=== PATIENT | female | born 1970 | race Caucasian/White ===

== ENCOUNTER 2018-06-07 16:49 | Observation (INO) | payer OTHER ==
[~2018-06-07] VITALS: Ht 160 cm; Wt 70.8 kg
--- NOTE | 2018-06-07 17:28 | EKG ---
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
--- NOTE | 2018-06-07 17:30 | RAD ---
AP chest. HISTORY: Chest pain Portable AP view was taken of the chest. There is mild apical scarring and linear density. There are no acute infiltrates. Heart is within normal limits in size. There is no pleural effusion. IMPRESSION: 1. No acute infiltrates. Electronically signed by: Emerson Dai MD (06/07/2018 5:26 PM) [facility]
[2018-06-07 17:47] LABS: BASO % 1 % (0-3); EOS # 0.3 x10^3/uL (0.0-0.7); EOS % 5 % (0-3); HEMATOCRIT 35.9 % (36.0-47.0); HEMOGLOBIN 12.2 g/dL (12.0-15.5); LYMPH # 2.1 x10^3/uL (1.0-4.8); LYMPH % 39 % (24-48); MEAN CORPUSCULAR HEMOGLOBIN 30 pg (25-35); MEAN CORPUSCULAR HGB CONC 34 g/dL (31-37); MEAN CORPUSCULAR VOLUME 89 fL (79-100); MONO # 0.4 x10^3/uL (0.0-1.1); MONO % 7 % (0-9); NEUT # 2.6 x10^3uL (1.8-7.7); NEUT % 48 % (31-73); PLATELET COUNT 212 x10^3/uL (140-400); RED BLOOD COUNT 4.02 x10^6/uL (3.50-5.40); RED CELL DISTRIBUTION WIDTH 13.8 % (11.5-14.5); WHITE BLOOD COUNT 5.5 x10^3/uL (4.0-11.0)
[2018-06-07 18:08] LABS: ALBUMIN 3.1 g/dL (3.4-5.0); ALBUMIN/GLOBULIN RATIO 1.3 (1.0-1.7); CALCIUM 9.1 mg/dL (8.5-10.1); CREATININE 0.7 mg/dL (0.6-1.0); GFR 90.1; MAGNESIUM 1.8 mg/dL (1.8-2.4); POTASSIUM 3.4 mmol/L (3.5-5.1); TOTAL BILIRUBIN 0.1 mg/dL (0.2-1.0); TOTAL PROTEIN 5.5 g/dL (6.4-8.2)
[2018-06-07] MEDS ORDERED: MORPHINE SULFATE 4 MG/ML DISP.SYRIN. IV ONE (18:30)
--- NOTE | 2018-06-07 18:38 | PHYS DOC ---
Adult General Chief Complaint Chief Complaint: DYSPNEA/RESPIRATOY DISTRESS [facility] HPI Patient is a 47 year old female who presents with appearing of chest pain and shortness of breath. Patient complaining of intermittent episodes of left lower chest pain as a stabbing pain for the last 1 week that usually happen when she lays down. Patient complaining of shortness of breath with the pain and rated her pain 8/10. Patient complaining of nonproductive cough and generalized weakness without nausea and vomiting, palpitation, fever and chills, history of chest pain. Patient was seen by her primary care physician 5 days ago and today and gained about 15 pounds and recommended to come to emergency room for evaluation of chest pain and possible CHF. Review of Systems Review of Systems Constitutional: Denies fever or chills [] Eyes: Denies change in visual acuity, redness, or eye pain [] HENT: Denies nasal congestion or sore throat [] Respiratory: Reports cough and shortness of Cardiovascular: No additional information not addressed in HPI [] GI: Denies abdominal pain, nausea, vomiting, bloody stools or diarrhea [] : Denies dysuria or hematuria [] Musculoskeletal: Denies back pain or joint pain [] Integument: Denies rash or skin lesions [] Neurologic: Denies headache, focal weakness or sensory changes [] Endocrine: Denies polyuria or polydipsia [] All other systems were reviewed and found to be within normal limits, except as documented in this note. Physical Exam Physical Exam Constitutional: Well developed, well nourished, mild distress, non-toxic appearance. [] HENT: Normocephalic, atraumatic Eyes: PERRLA, EOMI, conjunctiva normal, no discharge. [] Neck: Normal range of motion, no tenderness, supple, no stridor. [] Cardiovascular:Heart rate regular rhythm, no murmur [] Lungs & Thorax: Bilateral mild rhonchi and rales Abdomen: Bowel sounds normal, soft, no tenderness, no masses, no pulsatile masses. [] Skin: Warm, dry, no erythema, no rash. [] Back: No tenderness, no CVA tenderness. [] Extremities: No tenderness, no cyanosis, no clubbing, ROM intact, no edema. [] Neurologic: Alert and oriented X 3, normal motor function, normal sensory function, no focal deficits noted. [] Psychologic: Affect normal, judgement normal, mood normal. [] Current Patient Data Lab Results Laboratory Tests Test 06/07/18 17:20 White Blood Count 5.5 x10^3/uL (4.0-11.0) Red Blood Count 4.02 x10^6/uL (3.50-5.40) Hemoglobin 12.2 g/dL (12.0-15.5) Hematocrit 35.9 % (36.0-47.0) L Mean Corpuscular Volume 89 fL (79-100) Mean Corpuscular Hemoglobin 30 pg (25-35) Mean Corpuscular Hemoglobin Concent 34 g/dL (31-37) Red Cell Distribution Width 13.8 % (11.5-14.5) Platelet Count 212 x10^3/uL (140-400) Neutrophils (%) (Auto) 48 % (31-73) Lymphocytes (%) (Auto) 39 % (24-48) Monocytes (%) (Auto) 7 % (0-9) Eosinophils (%) (Auto) 5 % (0-3) H Basophils (%) (Auto) 1 % (0-3) Neutrophils # (Auto) 2.6 x10^3uL (1.8-7.7) Lymphocytes # (Auto) 2.1 x10^3/uL (1.0-4.8) Monocytes # (Auto) 0.4 x10^3/uL (0.0-1.1) Eosinophils # (Auto) 0.3 x10^3/uL (0.0-0.7) Basophils # (Auto) 0.0 x10^3/uL (0.0-0.2) Prothrombin Time 9.5 SEC (9.4-11.4) Prothrombin Time INR 1.0 (0.9-1.1) PTT 25 SEC (23-33) D-Dimer (Debra) 0.37 mg/L (0.00-0.50) Sodium Level 143 mmol/L (136-145) Potassium Level 3.4 mmol/L (3.5-5.1) L Chloride Level 108 mmol/L (98-107) H Carbon Dioxide Level 27 mmol/L (21-32) Anion Gap 8 (6-14) Blood Urea Nitrogen 11 mg/dL (7-20) Creatinine 0.7 mg/dL (0.6-1.0) Estimated GFR (Cockcroft-Gault) 90.1 BUN/Creatinine Ratio 16 (6-20) Glucose Level 88 mg/dL (70-99) Calcium Level 9.1 mg/dL (8.5-10.1) Magnesium Level 1.8 mg/dL (1.8-2.4) Total Bilirubin 0.1 mg/dL (0.2-1.0) L Aspartate Amino Transferase (AST) 15 U/L (15-37) Alanine Aminotransferase (ALT) 21 U/L (14-59) Alkaline Phosphatase 90 U/L (46-116) Creatine Kinase 89 U/L (26-192) Troponin I Quantitative < 0.017 ng/mL (0-0.055) YT-Krc-D-Type Natriuretic Peptide 82 pg/mL (0-124) Total Protein 5.5 g/dL (6.4-8.2) L Albumin 3.1 g/dL (3.4-5.0) L Albumin/Globulin Ratio 1.3 (1.0-1.7) EKG EKG EKG interpreted by me. EKG at 1707 showed normal sinus rhythm at rate of 74, low voltage QRS, no acute ST and T-wave abnormalities Radiology/Procedures Radiology/Procedures [address] [address] IMAGING REPORT Signed PATIENT: NIKI LOPEZ ACCOUNT: [id number] : 1970 LOCATION: ER AGE: 47 SEX: F EXAM STATUS: REG ER ORD. PHYSICIAN: DNO COON MD REASON: chest pain PROCEDURE: PORTABLE CHEST 1V AP chest. HISTORY: Chest pain Portable AP view was taken of the chest. There is mild apical scarring and linear density. There are no acute infiltrates. Heart is within normal limits in size. There is no pleural effusion. IMPRESSION: 1. No acute infiltrates. Electronically signed by: Emerson Dai MD (06/07/2018 5:26 PM) [facility] DICTATED AND SIGNED BY: EMERSON DAI MD DATE: 06/07/18 2674 CC: DON COON MD; RAFAEL POWERS ~ Course & Med Decision Making Course & Med Decision Making Pertinent Labs and Imaging studies reviewed. (See chart for details) Evaluation of patient in ER showed 47-year-old female patient with complaining of intermittent episodes of chest pain in complaining from 8. Patient had by basilar arteries. Chest x-ray and labs was unremarkable regarding CHF and PE and acute heart attack. Because of chest pain for 1 week and gaining. Plan to admit patient with diagnosis of acute chest pain. Dr. Mcclure accepted admission at 1807. Dragon Disclaimer Dragon Disclaimer This electronic medical record was generated, in whole or in part, using a voice recognition dictation system. Departure Departure: Impression: Primary Impression: Acute chest pain Additional Impressions: Dyspnea Tobacco abuse Disposition: 09 ADMITTED INPATIENT (at 1835) Admitting Physician: Other (Dr. Mcclure accepted admission at 1807) Condition: IMPROVED Referrals: RAFAEL POWERS (PCP) Problem Qualifiers DON COON MD Jun 07, 2018 18:38
[2018-06-07 19:53] VITALS: BP 143/90
[2018-06-07] MEDS ORDERED: CHOL10003 PO (20:33)
[2018-06-07] MEDS ORDERED: ESTR1TAB88 PO (20:33)
[2018-06-07 22:18] VITALS: BP 117/78
[2018-06-08 00:40] VITALS: BP 116/80
[2018-06-08] MEDS ORDERED: MORPHINE SULFATE 2 MG/ML DISP.SYRIN. IV PRN (02:45)
[2018-06-08 05:35] VITALS: BP 112/74
[2018-06-08 06:05] LABS: BASO # 0.1 x10^3/uL (0.0-0.2); BASO % 1 % (0-3); EOS # 0.2 x10^3/uL (0.0-0.7); EOS % 5 % (0-3); HEMATOCRIT 36.2 % (36.0-47.0); HEMOGLOBIN 12.4 g/dL (12.0-15.5); LYMPH # 2.1 x10^3/uL (1.0-4.8); LYMPH % 47 % (24-48); MEAN CORPUSCULAR HEMOGLOBIN 30 pg (25-35); MEAN CORPUSCULAR HGB CONC 34 g/dL (31-37); MEAN CORPUSCULAR VOLUME 89 fL (79-100); MONO # 0.3 x10^3/uL (0.0-1.1); MONO % 7 % (0-9); NEUT # 1.8 x10^3uL (1.8-7.7); NEUT % 40 % (31-73); PLATELET COUNT 211 x10^3/uL (140-400); RED BLOOD COUNT 4.06 x10^6/uL (3.50-5.40); RED CELL DISTRIBUTION WIDTH 13.3 % (11.5-14.5); WHITE BLOOD COUNT 4.4 x10^3/uL (4.0-11.0)
[2018-06-08 06:12] LABS: CALCIUM 8.4 mg/dL (8.5-10.1); CREATININE 0.7 mg/dL (0.6-1.0); GFR 90.1; POTASSIUM 3.7 mmol/L (3.5-5.1)
[2018-06-08] MEDS ORDERED: CHOLECALCIFEROL (VITAMIN D3) 1,000 UNIT TABLET PO SCH (09:00)
[2018-06-08] MEDS ORDERED: DUAVEE PO SCH (09:00)
--- NOTE | 2018-06-08 09:40 | PDOC2 ---
CONSULT Date of Admission DATE: 06/08/18 TIME: 09:35 Reason for Consult: cp Problem List Problems Medical Problems: (1) Acute chest pain Status: Acute (2) Dyspnea Status: Acute (3) Tobacco abuse Status: Acute History of Present Illness Ms Godinez is a 47 year old female who presented with complaints of chest pain and orthopnea. She describes sharp pain left lateral chest worse with deep inspiration. She complains of shortness of breath and "dry, hacking" cough when she tries to lay down at night. She says she coughs so hard she feels like she would asphyxiate. Her , who is at bedside, states her coughing is frightening. She says she sits up and after a few minutes is able to catch her breath and stop coughing. She reports the cough started in early May just after the [place]. She reports fluid retention and a gain of >20 lbs over a short period of time. She denies, however, any exertional symptoms. She reports induced hypertension, leaking valve and post and episode of heart failure which she says this feels like. She reports occasional palpitations, denies lightheadedness or syncope. She denies any functional limitations. When asked, she reiterates that her symptoms only occur at night. Cardiovascular: CHF, Other ( induced hypertension) Pulmonary: Pneumonia GI: GERD Past Surgical History: , Hernia Repair, Other (benign breast cyst removal) Family History TIA, cancer (brain, thyroid and breast), CHF Social History 1ppd smoker, no significant ETOH, no illicit drugs. Current Medications Current Medications Morphine Sulfate (Morphine 4mg Syringe) 4 mg 1X ONCE IV Last administered on at 19:01; Start 06/07/18 at 18:30; Stop 06/07/18 at 21:06; Status DC Influenza Virus Vaccine (Afluria Trivalent 9210-0729 Syringe) 0.5 ml ONCE ONCE VAX IM ; Start 06/08/18 at 09:00; Stop 06/08/18 at 09:01; Status DC Vitamin D (Vitamin D3) 2,000 unit DAILY PO ; Start 06/08/18 at 09:00 Non-Formulary Medication (Estrogens,Conj/ Bazedoxifene (Duavee 0.45-20 Mg Tablet )) 1 tab DAILY PO ; Start 06/08/18 at 09:00 Morphine Sulfate (Morphine 2mg Syringe) 2 mg PRN Q2HR PRN IV PAIN Last administered on 06/08/18at 02:55; Start 06/08/18 at 02:45 Active Scripts Active Reported Duavee 0.45-20 Mg Tablet (Estrogens,Conj/Bazedoxifene) 1 Each Tablet 1 Tab PO DAILY LAST DOSE GIVEN: DATE: TIME: NEXT DOSE DUE: DATE: TIME: Vitamin D3 (Cholecalciferol (Vitamin D3)) 1,000 Unit Tablet 2,000 Unit PO DAILY LAST DOSE GIVEN: DATE: TIME: NEXT DOSE DUE: DATE: TIME: Allergies: Coded Allergies: iodine (Verified Allergy, Intermediate, Shortness of Air, 06/07/18) Review of System as per HPI or negative General: Alert, Oriented X3, Cooperative, No acute distress HEENT: Atraumatic, EOMI, Mucous membr. moist/pink Lungs: Clear to auscultation Heart: Regular rate, Normal S1, Normal S2 Abdomen: Normal bowel sounds, Soft, No tenderness Extremities: No cyanosis, No edema, Normal pulses Neuro: Normal speech, Strength at 5/5 X4 ext Psych/Mental Status: Mental status NL, Mood NL VITALS Vital Signs Date Time Temp Pulse Resp B/P (MAP) Pulse Ox O2 Delivery O2 Flow Rate FiO2 06/08/18 08:00 Room Air 06/08/18 05:35 98.3 76 18 112/74 (87) 95 Labs Laboratory Tests Test 06/07/18 17:20 06/07/18 22:02 06/08/18 00:40 06/08/18 05:55 White Blood Count 5.5 x10^3/uL (4.0-11.0) 4.4 x10^3/uL (4.0-11.0) Red Blood Count 4.02 x10^6/uL (3.50-5.40) 4.06 x10^6/uL (3.50-5.40) Hemoglobin 12.2 g/dL (12.0-15.5) 12.4 g/dL (12.0-15.5) Hematocrit 35.9 % (36.0-47.0) 36.2 % (36.0-47.0) Mean Corpuscular Volume 89 fL (79-100) 89 fL (79-100) Mean Corpuscular Hemoglobin 30 pg (25-35) 30 pg (25-35) Mean Corpuscular Hemoglobin Concent 34 g/dL (31-37) 34 g/dL (31-37) Red Cell Distribution Width 13.8 % (11.5-14.5) 13.3 % (11.5-14.5) Platelet Count 212 x10^3/uL (140-400) 211 x10^3/uL (140-400) Neutrophils (%) (Auto) 48 % (31-73) 40 % (31-73) Lymphocytes (%) (Auto) 39 % (24-48) 47 % (24-48) Monocytes (%) (Auto) 7 % (0-9) 7 % (0-9) Eosinophils (%) (Auto) 5 % (0-3) 5 % (0-3) Basophils (%) (Auto) 1 % (0-3) 1 % (0-3) Neutrophils # (Auto) 2.6 x10^3uL (1.8-7.7) 1.8 x10^3uL (1.8-7.7) Lymphocytes # (Auto) 2.1 x10^3/uL (1.0-4.8) 2.1 x10^3/uL (1.0-4.8) Monocytes # (Auto) 0.4 x10^3/uL (0.0-1.1) 0.3 x10^3/uL (0.0-1.1) Eosinophils # (Auto) 0.3 x10^3/uL (0.0-0.7) 0.2 x10^3/uL (0.0-0.7) Basophils # (Auto) 0.0 x10^3/uL (0.0-0.2) 0.1 x10^3/uL (0.0-0.2) Prothrombin Time 9.5 SEC (9.4-11.4) Prothromb Time International Ratio 1.0 (0.9-1.1) Activated Partial Thromboplast Time 25 SEC (23-33) D-Dimer (Debra) 0.37 mg/L (0.00-0.50) Sodium Level 143 mmol/L (136-145) 142 mmol/L (136-145) Potassium Level 3.4 mmol/L (3.5-5.1) 3.7 mmol/L (3.5-5.1) Chloride Level 108 mmol/L (98-107) 108 mmol/L (98-107) Carbon Dioxide Level 27 mmol/L (21-32) 30 mmol/L (21-32) Anion Gap 8 (6-14) 4 (6-14) Blood Urea Nitrogen 11 mg/dL (7-20) 9 mg/dL (7-20) Creatinine 0.7 mg/dL (0.6-1.0) 0.7 mg/dL (0.6-1.0) Estimated GFR (Cockcroft-Gault) 90.1 90.1 BUN/Creatinine Ratio 16 (6-20) Glucose Level 88 mg/dL (70-99) 82 mg/dL (70-99) Calcium Level 9.1 mg/dL (8.5-10.1) 8.4 mg/dL (8.5-10.1) Magnesium Level 1.8 mg/dL (1.8-2.4) Total Bilirubin 0.1 mg/dL (0.2-1.0) Aspartate Amino Transf (AST/SGOT) 15 U/L (15-37) Alanine Aminotransferase (ALT/SGPT) 21 U/L (14-59) Alkaline Phosphatase 90 U/L (46-116) Creatine Kinase 89 U/L (26-192) Troponin I Quantitative < 0.017 ng/mL (0-0.055) < 0.017 ng/mL (0-0.055) < 0.017 ng/mL (0-0.055) MN-Urs-N-Type Natriuretic Peptide 82 pg/mL (0-124) Total Protein 5.5 g/dL (6.4-8.2) Albumin 3.1 g/dL (3.4-5.0) Albumin/Globulin Ratio 1.3 (1.0-1.7) Images CXR no acute abn EKG sinus rhythm without acute ischemic changes Assessment/Plan 1. cp atypical - PR ruled out. will check echo for LV function and valvular disease as she reports a "valve problem" in the past. 2. orthopnea/persistent nocturnal cough - no evidence of heart failure clinically, normal CXR, normal BNP, no edema. Unclear cause. await echo for LV and valvular function. add PPI, check CT chest to rule out any structural abn. check nocturnal oximetry. 3. mild hypokalemia - replaced and now WNJOHANNA [employer]IV[employer] Jun 08, 2018 09:40
[2018-06-08 12:08] VITALS: BP 134/83
[2018-06-08] MEDS ORDERED: PANTOPRAZOLE 40 MG TABLET. PO SCH (14:30)
[2018-06-08 15:50] VITALS: BP 117/75
[2018-06-08] MEDS ORDERED: ALBUTEROL SULFATE 2.5 MG/3 ML NEBU. NEB SCH (16:00)
[2018-06-08] MEDS ORDERED: ALBUTEROL SULFATE 2.5 MG/3 ML NEBU. ONE (16:00)
[2018-06-08] MEDS ORDERED: methylPREDNISolone SOD SUCC PF 125 MG/2 ML VIAL. IV SCH (17:00)
--- NOTE | 2018-06-08 17:44 | RAD ---
CT CHEST WO CONTRAST Indication: CHEST PAIN, ORTHOPNEA, COUGH, Technique: Noncontrast CT imaging was performed of the chest, multiplanar reconstruction images submitted. One or more of the following individualized dose reduction techniques were utilized for this examination: 1. Automated exposure control 2. Adjustment of the mA and/or kV according to patient size 3. Use of iterative reconstruction technique. Comparison: None Findings: There is no pneumothorax. There is mild to moderate emphysema with upper zone predominance. There is minimal patchy infiltrate or atelectasis posteriorly of the left lower lobe abutting the pleural surface, minimally very mild dependent likely atelectasis on the right. There is no significant pleural fluid or pericardial effusion. No significantly enlarged nodes are identified of the chest, some subcentimeter lymph nodes of the mediastinum. There is hypodense lesion of the right thyroid gland about 1.5 cm. Major airways are patent. There is likely fibrotic change of the left lung apex, somewhat more confluent density axial image 11 greatest dimension about 2.3 cm transverse by 0.8 cm AP by 0.5 cm cc. Thoracic aortic caliber is within normal limits, cannot accurately evaluate for dissection flap on this noncontrast exam. IMPRESSION: 1. There is emphysema with upper zone predominance. There is mild dependent atelectasis or infiltrate left lower lobe dependently, also probable more likely fibrotic change near the left lung apex although somewhat more confluent density present for which attention on follow-up in 3 months advised as per revised Fleischner guideline. 2. There is hypodense lesion right thyroid gland for which nonemergent ultrasound evaluation recommended. Electronically signed by: Tyler Cowart MD (06/08/2018 5:41 PM) [facility]
--- NOTE | 2018-06-08 17:49 | PDOC1 ---
History of Present Illness Reason for Visit: chest pain, dyspnea History of Present Illness Ms Lopez is a 47 year old female who presented to the emergency department with complaints of chest pain and orthopnea. She describes sharp pain at the left lateral chest worse with deep inspiration. She complains of shortness of breath and nonproductive "dry, hacking" cough when she tries to lay down at night. She says she coughs so hard she feels like she would asphyxiate. Her , who is at bedside, states her coughing is frightening. She says she sits up and after a few minutes is able to catch her breath and stop coughing. Denies any dyspnea with upright posture. She reports fluid retention and a gain of >20 lbs over a short period of time. She feels the fluid accumulates in her legs, abdomen, and lungs denies any prior liver disease. No symptoms are reproducible with exertion. She reports induced hypertension, "leaky and enlarged valve and my heart" and post an episode of heart failure which she says this feels like. She reports occasional palpitations, denies lightheadedness or syncope. She denies any functional limitations. When asked , she reiterates that her symptoms only occur at night. She has had increased allergy symptoms concomitant with her nighttime cough and dyspnea and [place]" where there is a lot of agricultural activity with arial environmental pollutants. Her EKG was reportedly normal sinus rhythm 74 bpm with low voltage, chest x-ray read as unremarkable. Labs were significant for potassium of 3.4 which improved to 3.7 today with supplementation and eosinophilia. Echocardiogram are pending. I find her lying in bed with significant other at bedside. She describes multiple prior hospitalizations for similar symptoms "I spend all these night in the hospitals in the doctors can't figure out what's wrong with me." She is lying down for the exam with no apparent dyspnea. PATIENT: NIKI LOPEZ ACCOUNT: [id number] : 1970 LOCATION: [facility] AGE: 47 SEX: F EXAM STATUS: ADM IN ORD. PHYSICIAN: JOHANNA PIMENTEL APRN REASON: cp, orthopnea, cough PROCEDURE: CT CHEST WO CONTRAST CT CHEST WO CONTRAST Indication: CHEST PAIN, ORTHOPNEA, COUGH, Technique: Noncontrast CT imaging was performed of the chest, multiplanar reconstruction images submitted. One or more of the following individualized dose reduction techniques were utilized for this examination: 1. Automated exposure control 2. Adjustment of the mA and/or kV according to patient size 3. Use of iterative reconstruction technique. Comparison: None Findings: There is no pneumothorax. There is mild to moderate emphysema with upper zone predominance. There is minimal patchy infiltrate or atelectasis posteriorly of the left lower lobe abutting the pleural surface, minimally very mild dependent likely atelectasis on the right. There is no significant pleural fluid or pericardial effusion. No significantly enlarged nodes are identified of the chest, some subcentimeter lymph nodes of the mediastinum. There is hypodense lesion of the right thyroid gland about 1.5 cm. Major airways are patent. There is likely fibrotic change of the left lung apex, somewhat more confluent density axial image 11 greatest dimension about 2.3 cm transverse by 0.8 cm AP by 0.5 cm cc. Thoracic aortic caliber is within normal limits, cannot accurately evaluate for dissection flap on this noncontrast exam. IMPRESSION: 1. There is emphysema with upper zone predominance. There is mild dependent atelectasis or infiltrate left lower lobe dependently, also probable more likely fibrotic change near the left lung apex although somewhat more confluent density present for which attention on follow-up in 3 months advised as per revised Fleischner guideline. 2. There is hypodense lesion right thyroid gland for which nonemergent ultrasound evaluation recommended. Electronically signed by: Ron Valle MD (06/08/2018 5:41 PM) [facility] DICTATED AND SIGNED BY: RON VALLE MD DATE: 06/08/18 [id number] CC: RAFAEL POWERS; JOHANNA PIMENTEL APRN; RON DENNISON DO ~ Chief Complaint: DYSPNEA/RESPIRATORY DISTRESS Allergies: Coded Allergies: iodine (Verified Allergy, Intermediate, Shortness of Air, 06/07/18) Past Medical History Cardiac: CHF, Other ( induced hypertension) Pulmonary: Pneumonia GI: GERD Past Surgical History: Other (, Hernia Repair, Other (benign breast cyst removal)) Past Social History Smoke: 1 pack per day Alcohol: none Drugs: None Lives: with Family Review of Systems Review Of Systems Fourteen system , review of systems has been reviewed. See HPI for pertinent positives and negative responses, other maldonado all other systems are negative, non pertinent or non contributory Constitutional: No: Fever, Sweats, Weakness Eyes: Yes: Excessive tearing; No: Blurry vision, Eye Pain ENT: YES: Nose discharge, Nose congestion; No: Ear pain, Nose pain Respiratory: YES: Cough, Orthopnea, Pleuritic Pain, Shortness of breath, Other ("it feels like there is bubbles in there"); No: Hemoptysis, SOB with excertion, Sputum Changes Cardiovascular: yes: Chest Pain, Orthopnea, Edema; No: Palpitations Gastrointestinal: No: Nausea, Vomiting, Abdominal Pain Musculoskeletal: No: Joint Pain, Joint Swelling SKIN: YES: Warm, Dry; No: No Rashes Neurological: No: Confusion, Dizziness, Headaches, Memory Loss Medications Current Medications Morphine Sulfate (Morphine 4mg Syringe) 4 mg 1X ONCE IV Last administered on at 19:01; Start 06/07/18 at 18:30; Stop 06/07/18 at 21:06; Status DC Influenza Virus Vaccine (Afluria Trivalent [id number] Syringe) 0.5 ml ONCE ONCE VAX IM ; Start 06/08/18 at 09:00; Stop 06/08/18 at 09:01; Status DC Vitamin D (Vitamin D3) 2,000 unit DAILY PO Last administered on 06/08/18at 09:59 ; Start 06/08/18 at 09:00 Non-Formulary Medication (Estrogens,Conj/ Bazedoxifene (Duavee 0.45-20 Mg Tablet )) 1 tab DAILY PO ; Start 06/08/18 at 09:00 Morphine Sulfate (Morphine 2mg Syringe) 2 mg PRN Q2HR PRN IV PAIN Last administered on 06/08/18at 02:55; Start 06/08/18 at 02:45 Pantoprazole Sodium (Protonix) 40 mg DAILYAC PO ; Start 06/08/18 at 14:30 Methylprednisolone Sodium Succinate (SOLU-Medrol 125MG VIAL) 125 mg Q8HRS IV Last administered on 06/08/18at 17:05; Start 06/08/18 at 17:00 Albuterol Sulfate (Ventolin) 2.5 mg RTQID NEB Last administered on 06/08/18at 16 :00; Start 06/08/18 at 16:00 Albuterol Sulfate (Ventolin) 2.5 mg STK-MED ONCE .ROUTE Last administered on at 16:04; Start 06/08/18 at 16:00; Stop 06/08/18 at 16:01; Status DC Active Scripts Active Reported Duavee 0.45-20 Mg Tablet (Estrogens,Conj/Bazedoxifene) 1 Each Tablet 1 Tab PO DAILY LAST DOSE GIVEN: DATE: TIME: NEXT DOSE DUE: DATE: TIME: Vitamin D3 (Cholecalciferol (Vitamin D3)) 1,000 Unit Tablet 2,000 Unit PO DAILY LAST DOSE GIVEN: DATE: TIME: NEXT DOSE DUE: DATE: TIME: Exam Vital Signs Vital Signs Date Time Temp Pulse Resp B/P (MAP) Pulse Ox O2 Delivery O2 Flow Rate FiO2 06/08/18 16:07 97 Room Air 06/08/18 15:50 98.2 64 18 117/75 (89) General Appearance: Alert, Oriented X3, No acute distress HEENT: Atraumatic, PERRLA, EOMI, Mucous membr. moist/pink Respiratory: Normal air movement, Other (faint diffuse wheezes, mildly decreased breath sounds at the bases) Heart: Normal S1, Normal S2, No murmurs Abdominal: Soft, No tenderness Extremities: No clubbing, No cyanosis, Other (trace pitting edema bilaterally) Skin: No rashes, No breakdown Neuro: Normal gait, Normal speech, Normal tone, Cranial nerves 3-12 NL Psych/Mental Status: Mental status NL, Mood NL Assessment/Plan Assessment/Plan A) Chest pain Orthopnea Nighttime cough with wheeze Eosinophilia Tobaccoism one pack per day smoker Confluent density present left lung apex for which attention on follow-up in 3 months advised as per revised Fleischner guideline. Hypodense lesion in the thyroid gland for which further outpatient workup is indicated Community-acquired pneumonia, left lower lobe infiltrate Hypokalemia: Improved with supplementation COPD P) echocardiogram pending, cardiology recommends further outpatient workup Patient's vital signs are stable for discharge home. Albuterol nebulizer treatment and Solu-Medrol 125 mg intravenously for apparent reactive airway disease Follow-up with PCP in 3-5 days for further evaluation of abnormal CT, recheck and smoking cessation consultation Follow-up with cardiology within 10-14 days for further outpatient evaluation and treatment. Prednisone burst 20 mg twice a day 5 days, albuterol MDI Cefdinir and Z-gissel, codeine/guaifenesin syrup 10/100 quantity 120 mL's when necessary cough COURSE Allergies Coded Allergies Type Severity Reaction Last Updated Verified iodine Allergy Intermediate Shortness of Air 06/07/18 Yes Laboratory Tests Test 06/07/18 22:02 06/08/18 00:40 06/08/18 05:55 Troponin I Quantitative < 0.017 ng/mL (0-0.055) < 0.017 ng/mL (0-0.055) White Blood Count 4.4 x10^3/uL (4.0-11.0) Red Blood Count 4.06 x10^6/uL (3.50-5.40) Hemoglobin 12.4 g/dL (12.0-15.5) Hematocrit 36.2 % (36.0-47.0) Mean Corpuscular Volume 89 fL (79-100) Mean Corpuscular Hemoglobin 30 pg (25-35) Mean Corpuscular Hemoglobin Concent 34 g/dL (31-37) Red Cell Distribution Width 13.3 % (11.5-14.5) Platelet Count 211 x10^3/uL (140-400) Neutrophils (%) (Auto) 40 % (31-73) Lymphocytes (%) (Auto) 47 % (24-48) Monocytes (%) (Auto) 7 % (0-9) Eosinophils (%) (Auto) 5 % (0-3) Basophils (%) (Auto) 1 % (0-3) Neutrophils # (Auto) 1.8 x10^3uL (1.8-7.7) Lymphocytes # (Auto) 2.1 x10^3/uL (1.0-4.8) Monocytes # (Auto) 0.3 x10^3/uL (0.0-1.1) Eosinophils # (Auto) 0.2 x10^3/uL (0.0-0.7) Basophils # (Auto) 0.1 x10^3/uL (0.0-0.2) Sodium Level 142 mmol/L (136-145) Potassium Level 3.7 mmol/L (3.5-5.1) Chloride Level 108 mmol/L (98-107) Carbon Dioxide Level 30 mmol/L (21-32) Anion Gap 4 (6-14) Blood Urea Nitrogen 9 mg/dL (7-20) Creatinine 0.7 mg/dL (0.6-1.0) Estimated GFR (Cockcroft-Gault) 90.1 Glucose Level 82 mg/dL (70-99) Calcium Level 8.4 mg/dL (8.5-10.1) Current Medications Medications (Trade) Dose Ordered Sig/Mayank Route PRN Reason Start Time Stop Time Status Last Admin Dose Admin Morphine Sulfate (Morphine 4mg Syringe) 4 mg 1X ONCE IV 06/07/18 18:30 06/07/18 21:06 DC 06/07/18 19:01 Influenza Virus Vaccine (Afluria Trivalent [id number] Syringe) 0.5 ml ONCE ONCE VAX IM 06/08/18 09:00 06/08/18 09:01 DC Vitamin D (Vitamin D3) 2,000 unit DAILY PO 06/08/18 09:00 06/08/18 09:59 Non-Formulary Medication (Estrogens,Conj/ Bazedoxifene (Duavee 0.45-20 Mg Tablet)) 1 tab DAILY PO 06/08/18 09:00 Morphine Sulfate (Morphine 2mg Syringe) 2 mg PRN Q2HR PRN IV PAIN 06/08/18 02:45 06/08/18 02:55 Pantoprazole Sodium (Protonix) 40 mg DAILYAC PO 06/08/18 14:30 Methylprednisolone Sodium Succinate (SOLU-Medrol 125MG VIAL) 125 mg Q8HRS IV 06/08/18 17:00 06/08/18 17:05 Albuterol Sulfate (Ventolin) 2.5 mg RTQID NEB 06/08/18 16:00 06/08/18 16:00 Albuterol Sulfate (Ventolin) 2.5 mg STK-MED ONCE .ROUTE 06/08/18 16:00 06/08/18 16:01 DC 06/08/18 16:04 I & O 06/08/18 00:00 Intake Total 550 ml Balance 550 ml Orders Procedure Category Date Status Time Morphine Sulfate PHA 06/07/18 Complete (Morphine 4mg Syringe) 18:30 [place] Order ADT 06/07/18 Transmitted 18:38 Code Status CODE 06/07/18 Transmitted 18:38 Vital Signs, Per CINTIA 06/07/18 In Process Protocol 18:38 Cardiac DIET 06/08/18 Transmitted Breakfast Troponin I LAB 06/07/18 Complete 21:38 Troponin I LAB 06/08/18 Complete 00:38 Admit Orders ADT 06/07/18 Transmitted 19:40 Consult Physician By CONS 06/08/18 Transmitted Name 08:00 Pneumatic Compression CINTIA 06/07/18 In Process Device 20:00 Smoking Cessation RT 06/07/18 Complete 3-10 Min 20:00 Flu Vacc Ts PHA 06/08/18 Complete (5yr+)/Pf (Afluria T 09:00 Nutrition Consult NOURISH 06/08/18 Transmitted 08:00 Cholecalciferol PHA 06/08/18 In Process (Vitamin D3) (Vitamin 09:00 (NF) PHA 06/08/18 In Process Estrogens,Conj/Bazedoxifene 09:00 Cbc W Autod[employer] LAB 06/08/18 Complete 05:00 Basic Metabolic Panel LAB 06/08/18 Complete 05:00 Morphine Sulfate PHA 06/08/18 In Process (Morphine 2mg Syringe) 02:45 Echocardiogram ECHO 06/08/18 Logged 09:40 Pantoprazole PHA 06/08/18 In Process (Protonix) 14:30 Nocturnal Desat Study RT 06/08/[address] Chest Wo Contrast CT 06/08/18 Taken 14:13 Methylprednisolone PHA 06/08/18 In Process 125mg Vial (Solu-Medr 17:00 Albuterol Sulfate PHA 06/08/18 In Process (Ventolin) 16:00 Airway Inhalation RT 06/08/18 Complete Treatment 15:42 Albuterol Sulfate PHA 06/08/18 Complete (Ventolin) 16:00 Vital Signs Date Time Temp Pulse Resp B/P (MAP) Pulse Ox O2 Delivery O2 Flow Rate FiO2 06/08/18 16:07 97 Room Air 06/08/18 15:50 98.2 64 18 117/75 (89) RON DENNISON DO Jun 08, 2018 17:49
[2018-06-08] MEDS ORDERED: AZITHROMYCIN 500 MG in IV NORMAL SALINE 250ML 250 ML IV ONE (18:00)
[2018-06-08] MEDS ORDERED: GUAI120L35 PO (18:12)
[2018-06-08] MEDS ORDERED: PRED20TA PO (18:12)
[2018-06-08] MEDS ORDERED: CEFD300C PO (18:12)
[2018-06-08] MEDS ORDERED: AZIT250T PO (18:12)
[2018-06-08] MEDS ORDERED: ALBU8.5H8 INH (18:12)
--- NOTE | 2018-06-08 18:18 | CARD ---
MR#: [id number] Date of Study: 06/08/2018 Ordering Physician: JOHANNA PIMENTEL, Referring Physician: RON DENNISON Tech: Rachel Paez RDCS APPROVED REPORT EXAM: Two-dimensional and M-mode echocardiogram with Doppler and color Doppler. Other Information Quality : Good INDICATION Dyspnea Chest Pain 2D DIMENSIONS RVDd2.5 (2.9-3.5cm)Left Atrium(2D)2.9 (1.6-4.0cm) IVSd0.7 (0.7-1.1cm)Aortic Root(2D)2.8 (2.0-3.7cm) LVDd4.5 (3.9-5.9cm)LVOT Diameter2.0 (1.8-2.4cm) PWd0.9 (0.7-1.1cm)LVDs2.8 (2.5-4.0cm) FS (%) 30.0 %SV61.7 ml LVEF(%)60.0 (>50%) Aortic Valve AoV Peak Bear.122.9cm/sAoV VTI24.4cm AO Peak GR.6.0mmHgLVOT Peak Bear.113.4cm/s LVOT VTI 22.71cmAO Mean GR.4mmHg ROMAN (VMAX)2.12vh9HDS (VTI)2.94cm2 Mitral Valve MV E Xgnxjrbw25.7cm/sMV DECEL OPMY528ks MV A Gixiymek53.8cm/sE/A Ratio0.8 Pulmonary Vein S1 Bfxladtb67.5cm/sD2 Jrseguqd63.1cm/s LEFT VENTRICLE The left ventricle is normal size. There is normal left ventricular wall thickness. The left ventricu lar systolic function is normal and the ejection fraction is within normal range. The Ejection Fracti on is 55-60%. There is normal LV segmental wall motion. Transmitral Doppler flow pattern is Grade I-a bnormal relaxation pattern. RIGHT VENTRICLE The right ventricle is normal size. The right ventricular systolic function is normal. ATRIA The left atrium size is normal. The right atrium size is normal. The interatrial septum is intact wit h no evidence for an atrial septal defect or patent foramen ovale as noted on 2-D or Doppler imaging. AORTIC VALVE The aortic valve is normal in structure and function. Doppler and Color Flow revealed no significant aortic regurgitation. There is no significant aortic valvular stenosis. MITRAL VALVE The mitral valve is normal in structure and function. There is no evidence of mitral valve prolapse. There is no mitral valve stenosis. Doppler and Color-flow revealed mild mitral regurgitation. TRICUSPID VALVE The tricuspid valve is normal in structure and function. Doppler and Color Flow revealed no tricuspid valve regurgitation noted. There is no tricuspid valve stenosis. PULMONIC VALVE The pulmonic valve is not well visualized. Doppler and Color Flow revealed trace to mild pulmonic stephane vular regurgitation. There is no pulmonic valvular stenosis. GREAT VESSELS The aortic root is normal in size. The ascending aorta is normal in size. The IVC is normal in size a nd collapses >50% with inspiration. PERICARDIAL EFFUSION There is no evidence of significant pericardial effusion. Critical Notification Critical Value: No <Conclusion> The left ventricle is normal size. The left ventricular systolic function is normal and the ejection fraction is within normal range. The Ejection Fraction is 55-60%. There is no significant aortic valvular stenosis. Doppler and Color Flow revealed no significant aortic regurgitation. Doppler and Color-flow revealed mild mitral regurgitation. Doppler and Color Flow revealed no tricuspid valve regurgitation noted. Signed by : Gaetano St MD Electronically Approved : 06/08/2018 18:17:23
[2018-06-08 19:15] VITALS: BP 128/86
== END 2018-06-08 20:45 | disposition home or self-care (01) ==
LOC: ER 16:49 → 1 SOUTH 18:35 → INTOOBSV 18:35
PROVIDERS: ADMIT Neuromusculoskeletal Medicine & OMM; ATTEND Neuromusculoskeletal Medicine & OMM
DX: R07.89 Other chest pain (principal); R06.01 Orthopnea; E87.6 Hypokalemia; K21.9 Gastro-esophageal reflux disease without esophagitis; F17.210 Nicotine dependence, cigarettes, uncomplicated; J44.0 Chronic obstructive pulmonary disease with (acute) lower respiratory infection; I50.9 Heart failure, unspecified; D72.1 Eosinophilia; Z80.8 Family history of malignant neoplasm of other organs or systems; Z82.49 Family history of ischemic heart disease and other diseases of the circulatory system
CPT/HCPCS: 36415; 71045; 71250; 80048; 80053; 82550; 83735; 83880; 84484; 85025; 85379; 85610; 85730; 90471; 90756; 93005; 93306; 94640; 96365; 96368; 96375; 96376; 99285; 99406; G0378; J0456; J0696; J2270; J2930; J7050; J7613; 96374; G0379; Q2035

== ENCOUNTER → 2018-06-16 | Outpatient (CLI) | payer OTHER ==
[2018-06-08 19:15] VITALS: BP 128/86
[~2018-06-16] MED LIST: ALBU8.5H8 INH; AZIT250T PO; CEFD300C PO; CHOL10003 PO; ESTR1TAB88 PO; GUAI120L35 PO; PRED20TA PO
--- NOTE | 2018-06-16 15:01 | RAD ---
THYROID ULTRASOUND History: Thyroid nodule Comparison: Chest CT June 08, 2018 Findings: Multiple sonographic images of the thyroid gland are submitted. Right lobe measured 5.3 x 1.9 x 1.7 cm. Left lobe measured 4.5 x 1.2 x 1.1 cm. There are 4 separate solid-appearing nodules identified of the mid and inferior right thyroid gland. Largest of these measures 2.2 x 1.5 x 1.1 cm, somewhat heterogeneous in appearance with significant internal hypervascularity on color Doppler imaging. Smaller ovoid focus more anteriorly measures about 1 x 0.7 x 0.3 cm, some internal vascularity color Doppler imaging. The more inferior somewhat heterogeneous solid nodule measures 1.5 x 1.2 x 0.8 cm, also internally very hypervascular. There is a small nodule more medially and anteriorly of the inferior right gland about 0.5 x 0.4 x 0.3 cm. There is a small nodule of the left isthmus of the thyroid gland about 0.4 x 0.3 x 0.2 cm in size. Impression: 1. There are 4 more distinct solid nodules of the right gland with the largest up to 2.3 cm, 2 dominant nodules on the right very hypervascular. There is a small nodule of the left isthmus of the thyroid gland. There are no previous exams to evaluate for change in size. Electronically signed by: Tyler Cowart MD (06/16/2018 2:57 PM) [id number]
== END | disposition home or self-care (01) ==
LOC: US 12:26
PROVIDERS: ATTEND Nurse Practitioner Family
DX: E04.0 Nontoxic diffuse goiter (principal)
CPT/HCPCS: 76536